=== PATIENT | female | born 1950 | race Hispanic/Latino ===

== ENCOUNTER 2021-10-17 07:21 | Observation (INO) | payer MEDICARE ==
[2021-10-13 10:55] LABS: BASOPHILS # (AUTO) 0.1 (0.0-0.1); BASOPHILS % 0.9 % (0.0-1.0); EOSINOPHILS # (AUTO) 0.3 (0.0-0.4); EOSINOPHILS % 4.3 % (0.0-6.0); HEMATOCRIT 38.4 % (34.2-44.1); HEMOGLOBIN 12.5 g/dL (12.0-16.0); LYMPHOCYTES # (AUTO) 2.2 (1.0-3.2); LYMPHOCYTES % 34.8 % (18.0-39.1); MEAN CORPUSCULAR HGB CONC 32.6 g/dL (31-35); MEAN CORPUSCULAR VOLUME 95.3 fL (81-99); MONOCYTES # (AUTO) 0.7 (0.2-0.8); MONOCYTES % 11.5 % (4.4-11.3); NEUTROPHILS # (AUTO) 3.1 (2.1-6.9); NEUTROPHILS % 48.3 % (38.7-80.0); PLATELET COUNT 197 x10e3/uL (140-360); RED BLOOD COUNT 4.03 x10e6/uL (3.6-5.1); RED CELL DISTRIBUTION WIDTH 13.2 % (11.7-14.4)
[2021-10-13 11:10] LABS: ANION GAP 14.1 mmol/L (8-16); CALCIUM 8.5 mg/dL (8.4-10.2); CREATININE, SERUM 0.8 mg/dL (0.57-1.11); POTASSIUM 4.1 mmol/L (3.5-5.1)
[~2021-10-17] VITALS: Ht 167.6 cm; Wt 72.6 kg
[~2021-10-17 07:21] MED LIST: ADVAIR 250-501 EACH INH; B COMPLEX1 EACH; B12; CELECOXIB 200 MG CAP ONE; COQ-10100 MG; CRESTOR10 MG PO; DEXAMETHASONE SOD PHOS 10 MG/1 ML VIAL ONE; FLUDROCORTISON0.1 MG PO; GABAPENTIN 300 MG CAP ONE; IRON; MAGNESIUM; MELOXICAM7.5 MG PO; METFORMIN HCL500 MG PO; MULTI-VITAMIN1 EACH PO; NEURONTIN300 MG PO; NEXIUM20 MG PO; NORCO; NYSTATIN100000 UNI PO; PREDNISONE10 MG PO; VITAMIN C500 MG PO; ZINC
[2021-10-17] MEDS ORDERED: TRANEXAMIC ACID 20 ML ONE (07:32)
[2021-10-17] MEDS ORDERED: Vancomycin IV 1,000 MG ONE (07:32)
[2021-10-17] MEDS ORDERED: SODIUM CHLORIDE 0.9% 500ML 500 ML ONE (07:32)
[2021-10-17] MEDS ORDERED: ACETAMINOPHEN 650 MG SUPP PR PRN (09:45)
[2021-10-17] MEDS ORDERED: KETOROLAC TROMETHAMINE 30 MG/ML VIAL IV PRN (09:45)
[2021-10-17] MEDS ORDERED: ZOLPIDEM TARTRATE 5 MG TAB PO PRN (09:45)
[2021-10-17] MEDS ORDERED: DIPHENHYDRAMINE HCL INJ 50 MG/ML VIAL IV PRN (09:45)
[2021-10-17] MEDS ORDERED: HYDROCODONE/APAP 5MG-325MG TAB PO PRN (09:45)
[2021-10-17] MEDS ORDERED: DOCUSATE SODIUM 100 MG CAP PO PRN (09:45)
[2021-10-17] MEDS ORDERED: ONDANSETRON HCL INJ 2MG/ML 2ML 2 MG/ML VIAL IV PRN (09:45)
[2021-10-17] MEDS ORDERED: MIDAZOLAM HCL 2 MG/2 ML VIAL ONE (12:57)
[2021-10-17] MEDS ORDERED: FENTANYL CITRATE/PF 100MCG/2 ML INJ ONE ×2 (12:57→14:09)
[2021-10-17] MEDS ORDERED: POVIDONE IODINE 0.05% 0.05 % ML PO ONE (13:39)
[2021-10-17] MEDS ORDERED: ONDANSETRON HCL INJ 2MG/ML 2ML 2 MG/ML VIAL ONE (13:39)
[2021-10-17] MEDS ORDERED: EPHEDRINE SULFATE INJ 50 MG/ML VIAL ONE (13:39)
[2021-10-17] MEDS ORDERED: PROPOFOL IV EMULSION 10 MG/ML 20 ML VIAL ONE (13:39)
[2021-10-17 14:58] VITALS: BP 131/68
[2021-10-17 15:06] VITALS: BP 131/68
[2021-10-17] MEDS ORDERED: DEXTROSE 50% SYRINGE 50 ML IV PRN (15:30)
[2021-10-17] MEDS ORDERED: SODIUM CHLORIDE 0.9% 1000ML 1,000 ML IV SCH (15:30)
[2021-10-17] MEDS: INSULIN LISPRO 100 UNIT/1 ML 3ML VIAL SQ SCH ×2 (15:54→20:33)
[2021-10-17 16:05] VITALS: BP 131/68
[2021-10-17] MEDS: CELECOXIB 200 MG CAP PO SCH (16:32)
[2021-10-17] MEDS: ASPIRIN 325 MG TAB PO SCH (18:30)
[2021-10-17 19:52] VITALS: BP 125/64
[2021-10-17 20:00] VITALS: BP 125/64
[2021-10-17] MEDS ORDERED: PANTOPRAZOLE SOD 40 MG TABEC PO SCH (20:00)
[2021-10-17] MEDS: HYDROCODONE/APAP 7.5MG-325MG 1 EA TAB PO PRN (20:44)
[2021-10-18] VITALS: BP 130/68
[2021-10-18] MEDS: HYDROCODONE/APAP 7.5MG-325MG 1 EA TAB PO PRN ×2 (03:56→08:45)
[2021-10-18 04:00] VITALS: BP 140/73
[2021-10-18] MEDS ORDERED: SALMETEROL/FLUTICASONE 250/50 INH SCH (04:15)
[2021-10-18 06:01] LABS: HEMOGLOBIN 11.5 g/dL (12.0-16.0)
[2021-10-18] MEDS: INSULIN LISPRO 100 UNIT/1 ML 3ML VIAL SQ SCH ×2 (07:30→11:30)
[2021-10-18] MEDS ORDERED: PANTOPRAZOLE SOD 40 MG TABEC PO SCH (07:30)
[2021-10-18 07:57] VITALS: BP 140/61
[2021-10-18] MEDS ORDERED: METFORMIN HCL 500 MG TAB PO SCH (08:00)
[2021-10-18] MEDS: ASPIRIN 325 MG TAB PO SCH (08:34)
[2021-10-18] MEDS: CELECOXIB 200 MG CAP PO SCH (08:34)
[2021-10-18] MEDS ORDERED: SIMVASTATIN 40 MG TAB PO SCH (09:00)
[2021-10-18] MEDS ORDERED: GABAPENTIN 300 MG CAP PO SCH (09:00)
[2021-10-18] MEDS ORDERED: CRESTOR 10MG PO SCH (09:00)
[2021-10-18] MEDS ORDERED: FLUDROCORTISONE ACETATE 0.1 MG TAB PO SCH (09:00)
[2021-10-18] MEDS ORDERED: ACETAMINOPHEN 1000 MG/100 ML IV PRN (09:45)
[2021-10-18] MEDS ORDERED: ONDANSETRON HCL 4 MG ORAL DISINTEGRATING TAB PO PRN (11:00)
[2021-10-18 12:01] VITALS: BP 123/60
== END 2021-10-18 13:56 | disposition home or self-care (01) ==
LOC: OR 07:21 → PACU V 09:23 → MED/SURG 14:28
PROVIDERS: ADMIT Specialist; ATTEND Specialist
DX: M16.0 Bilateral primary osteoarthritis of hip (principal); J45.909 Unspecified asthma, uncomplicated; I10 Essential (primary) hypertension; E11.9 Type 2 diabetes mellitus without complications; J44.9 Chronic obstructive pulmonary disease, unspecified; Z20.822 Contact with and (suspected) exposure to COVID-19; K21.9 Gastro-esophageal reflux disease without esophagitis; K75.81 Nonalcoholic steatohepatitis (NASH); Z01.818 Encounter for other preprocedural examination
CPT/HCPCS: 27130; 36415 ×3; 71046; 72170; 80048; 82948; 85014; 85018; 85025; 86850; 86900; 86920; 93005; 94799; 97116 ×2; 97161; 97530 ×2; G0378 ×2; J0171; J0690 ×2; J1100; J1885; J2405; J2704; J2795; J3010; J3370; J7040; S0164 ×2; U0002; J2250

== ENCOUNTER 2022-10-02 08:55 | Observation (INO) | payer MEDICARE, OTHER ==
[~2022-10-02] VITALS: Ht 167.6 cm; Wt 72.1 kg
[2022-10-02] VITALS (7 sets, daily range): BP systolic 114–124; BP diastolic 64–69; PULSE 60–70; RESP 16–20; TEMP 97.1–97.9; O2SAT 97–98
[~2022-10-02 08:55] MED LIST changes: +ACETAMINOPHEN 1000 MG/100 ML 100 ML IV ONE; +ALENDRONATE SOD70 MG PO; +ASPIRIN81 MG PO; -CELECOXIB 200 MG CAP ONE; -DEXAMETHASONE SOD PHOS 10 MG/1 ML VIAL ONE; -GABAPENTIN 300 MG CAP ONE; -NORCO; +NORCO PO
[2022-10-02] MEDS ORDERED: CELECOXIB 200 MG CAP ONE (09:09)
[2022-10-02] MEDS ORDERED: DEXAMETHASONE SOD PHOS 10 MG/1 ML VIAL ONE ×2 (09:09→11:54)
[2022-10-02] MEDS ORDERED: GABAPENTIN 300 MG CAP ONE (09:10)
[2022-10-02] MEDS ORDERED: LACTATED RINGER'S 1,000 ML ONE (09:10)
[2022-10-02] MEDS ORDERED: CEFAZOLIN SODIUM 2 GM ONE (09:10)
[2022-10-02] MEDS ORDERED: SODIUM CHLORIDE 0.9% 500ML 500 ML ONE (10:27)
[2022-10-02] MEDS ORDERED: TRANEXAMIC ACID 20 ML ONE (10:27)
[2022-10-02] MEDS ORDERED: Vancomycin IV 1,000 MG ONE (10:27)
[2022-10-02] MEDS ORDERED: POVIDONE IODINE 0.05% 0.05 % ML PO ONE (11:48)
[2022-10-02] MEDS ORDERED: PROPOFOL IV EMULSION 10 MG/ML 20 ML VIAL ONE (11:48)
[2022-10-02] MEDS ORDERED: ONDANSETRON HCL INJ 2MG/ML 2ML 2 MG/ML VIAL ONE (11:48)
[2022-10-02] MEDS ORDERED: BUPIVACAINE HCL 0.5% INJ 30 ML VIAL INJ ONE (11:54)
[2022-10-02] MEDS ORDERED: DIPHENHYDRAMINE HCL INJ 50 MG/ML VIAL IV PRN (12:30)
[2022-10-02] MEDS ORDERED: HYDROCODONE/APAP 5MG-325MG TAB PO PRN (12:30)
[2022-10-02] MEDS ORDERED: DOCUSATE SODIUM 100 MG CAP PO PRN (12:30)
[2022-10-02] MEDS ORDERED: SODIUM CHLORIDE 0.9% 1000ML 1,000 ML IV SCH (12:30)
[2022-10-02] MEDS ORDERED: ONDANSETRON HCL INJ 2MG/ML 2ML 2 MG/ML VIAL IV PRN (12:30)
[2022-10-02] MEDS ORDERED: MEPERIDINE HCL INJ 25 MG/ML VIAL ONE (13:36)
[2022-10-02] MEDS ORDERED: DEXTROSE 50% SYRINGE 50 ML IV PRN (15:45)
[2022-10-02] MEDS: INSULIN LISPRO 100 UNIT/1 ML 3ML VIAL SQ SCH ×2 (16:02→20:35)
[2022-10-02] MEDS: ASPIRIN 325 MG TAB PO SCH (17:22)
[2022-10-02] MEDS: CELECOXIB 100 MG CAP PO SCH (17:24)
[2022-10-02] MEDS ORDERED: ACETAMINOPHEN 1000 MG/100 ML IV PRN (18:00)
[2022-10-02] MEDS: HYDROCODONE/APAP 7.5MG-325MG 1 EA TAB PO PRN (20:18)
[2022-10-02] MEDS ORDERED: SODIUM CHLORIDE 0.9% 250ML 250 ML ONE (20:21)
[2022-10-03] VITALS: BP 129/94; PULSE 61; RESP 16; TEMP 97; O2SAT 94
[2022-10-03] MEDS: HYDROCODONE/APAP 7.5MG-325MG 1 EA TAB PO PRN ×2 (04:22→10:06)
[2022-10-03 05:30] LABS: HEMATOCRIT 33.6 % (34.2-44.1); HEMOGLOBIN 11.2 g/dL (12.0-16.0)
[2022-10-03 06:04] VITALS: BP 159/74; PULSE 67; RESP 18; TEMP 97; O2SAT 99
[2022-10-03 06:51] VITALS: PULSE 72; RESP 16; O2SAT 96
[2022-10-03] MEDS: INSULIN LISPRO 100 UNIT/1 ML 3ML VIAL SQ SCH ×3 (07:30→16:24)
[2022-10-03 08:37] VITALS: BP 154/78; PULSE 65; RESP 18; TEMP 98.7; O2SAT 97
[2022-10-03] MEDS: CELECOXIB 100 MG CAP PO SCH ×2 (10:06→16:33)
[2022-10-03] MEDS: ASPIRIN 325 MG TAB PO SCH ×2 (10:07→16:32)
[2022-10-03] MEDS ORDERED: ONDANSETRON HCL 4 MG ORAL DISINTEGRATING TAB PO PRN (11:30)
[2022-10-03 12:47] VITALS: BP 123/79; PULSE 52; RESP 18; TEMP 97.8; O2SAT 97
== END 2022-10-03 18:37 | disposition home or self-care (01) ==
LOC: OR 08:55 → PACU V 12:29 → MED/SURG 14:45
PROVIDERS: ADMIT Specialist; ATTEND Specialist
DX: M16.12 Unilateral primary osteoarthritis, left hip (principal); Z96.641 Presence of right artificial hip joint; J44.9 Chronic obstructive pulmonary disease, unspecified; E11.9 Type 2 diabetes mellitus without complications; I10 Essential (primary) hypertension; Z01.812 Encounter for preprocedural laboratory examination; Z01.818 Encounter for other preprocedural examination; Z20.822 Contact with and (suspected) exposure to COVID-19; Z88.8 Allergy status to other drugs, medicaments and biological substances; Z91.040 Latex allergy status; Z79.1 Long term (current) use of non-steroidal anti-inflammatories (NSAID); Z79.84 Long term (current) use of oral hypoglycemic drugs; Z79.82 Long term (current) use of aspirin; Z79.899 Other long term (current) drug therapy; Z87.891 Personal history of nicotine dependence
CPT/HCPCS: 0223U; 27130; 36415 ×3; 71046; 72170; 82948 ×2; 85014; 85018; 86850; 86900; 86920; 94799 ×2; 97116 ×3; 97162; 97530 ×3; C1713; C1776 ×3; G0378 ×2; J0131; J0171; J0690 ×2; J1100; J2175; J2405; J2704; J2795; J3370; J7040; J7050; J7121